=== PATIENT | male | born 1985 | race Caucasian/White ===

== ENCOUNTER 2017-07-18 15:34 | Emergency (ER) | payer OTHER ==
[2017-07-18 17:52] LABS: Urine Appearance Clear; Urine Blood Negative (Negative); Urine Color Yellow; Urine Ketones Negative (Negative); Urine Protein Negative (Negative); Urine Specific Gravity 1.024 (1.010-1.030); Urine Urobilinogen Negative (Negative)
[2017-07-18 18:02] LABS: ABS Basophils 0 10^3/ul (0-0.2); ABS Eosinophils 0.1 10^3/ul (0-0.6); ABS Lymphocytes 2.3 10^3/ul (1.0-4.8); ABS Monocytes 0.4 10^3/ul (0-0.8); ABS Neutrophils 3.2 10^3/ul (1.5-7.7); ABS Nucleated RBC 0 10^3/ul; Eosinophil % 2.2 % (0-6); Hematocrit 46 % (42-52); Hemoglobin 14.9 g/dl (14.0-18.0); Lymphocyte % 38.1 % (25-47); Mean Corpuscular HGB Conc 33 g/dl (31-36); Mean Corpuscular Hemoglobin 26 pg (27-31); Mean Corpuscular Volume 79 fL (80-94); Mean Platelet Volume 8.5 um3 (7.4-10.4); Nucleated Red Blood Cells % 0.1; Platelet Count 210 10^3/ul (150-450); Red Blood Count 5.74 10^6/ul (4.0-5.4); Red Cell Distribution Width 15 % (10.5-15); White Blood Count 6.1 10^3/ul (3.5-10.8)
[2017-07-18] MEDS ORDERED: ValACYclovir (*) 1 GM TAB PO ONE (18:22)
[2017-07-18 18:31] LABS: EGFR Non-African American 74.3 (>60)
[2017-07-18 18:50] VITALS: BP 117/79
--- NOTE | 2017-07-18 23:51 | ED ---
Antonino Naik Tecjoon, scribed for Kristen Park MD on 07/18/17 at 1713 . Skin Complaint - HPI Summary HPI Summary: This patient is a 32 year old male presenting to [facility] with a chief complaint of rash on upper right thigh since approx. 1 week ago. Patient states that he started feeling numbness, needle pricking and burning on right side of leg. The rash does not go onto the penis, but there is lots of groin pain. There are around 8 bumps all scattered around right thigh. The pain is described as stabbing. The pain is rated 8/10 in severity. Patient states that putting clothing on top of rash chafes and cause additional pain. Patient states that he tried "popping" several of the blisters of the rash in an effort to relieve the pain, states he got only clear fluid from the blisters. No fever. No red streaks. Symptoms alleviated by nothing. Patient additionally reports back pain , thigh pain. There are no sores in his mouth. Patient takes omeprazole for GERD as his only medication. - History of Current Complaint Chief Complaint: EDRashSkinAbscess Time Seen by Provider: 07/18/17 16:41 Stated Complaint: RT LEG RASH/PAIN Hx Obtained From: Patient Onset/Duration: Started Weeks Ago - 1, Still Present Timing: Constant Onset Severity: Moderate Current Severity: Severe Pain Intensity: 8 Pain Scale Used: 0-10 Numeric Skin Location: Leg - right thigh, but not definite dermatome pattern, also base of penis Character: Pain, Redness Aggravating Symptom(s): Touch Alleviating Symptom(s): Nothing, Treatment [employer]: - tried "popping" blisters with no relief Associated Signs & Symptoms: Negative - sores in mouth, fever, dysuria, discharge from penis Related History: Other: - hx of varicella zoster as child; is with monogamous partner, his x 9 yrs. - Allergy/Home Medications Allergies/Adverse Reactions: Allergies Allergy/AdvReac Type Severity Reaction Status Date / Time No Known Allergies Allergy Verified 07/18/17 16:35 Home Medications: Home Medications Cholecalciferol TAB* [Vitamin D TAB*] 1,000 unit PO DAILY 07/18/17 [History Confirmed 07/18/17] Omeprazole CAP* [Prilosec CAP* 20 MG] 20 mg PO DAILY 07/18/17 [History Confirmed 07/18/17] PMH/Surg Hx/FS Hx/Imm Hx Previously Healthy: Yes GI History: Reports: Hx Gastroesophageal Reflux Disease - Surgical History Surgery Procedure, Year, and Place: Inguinal Hernia Surgery Infectious Disease History: No Infectious Disease History: Denies: Traveled Outside the [place] in Last 30 Days - Family History Known Family History: Positive: Hypertension, Other - melanoma - Social History 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[facility], here to play with [employer] Lives: With Family Alcohol Use: Occasionally Hx Substance Use: No Substance Use Type: Reports: None Hx Tobacco Use: Yes Smoking Status (MU): Former Smoker Review of Systems Negative: Fever Cardiovascular: Negative Respiratory: Negative Gastrointestinal: Negative Genitourinary: Negative Positive: no symptoms reported Positive: Other - back pain, thigh pain Skin: Negative - sores in mouth Positive: Rash, Other - blisters on right thigh and base of penis Neurological: Negative Psychological: Normal All Other Systems Reviewed And Are Negative: Yes Physical Exam - Summary Physical Exam Summary: Appearance: well appearing, moderate pain distress, Well-nourished Skin: Clear vesicles in clusters, starting on right lateral hip to groin to base of penis, continuing to right medial aspect of leg, not in definite dermatomal pattern. Right inguinal lymphadenopathy, 3cm, tender, movable Head: Normal Head/Face inspection Eyes: Conjunctiva clear ENT: Normal inspection Neck: Supple, no nodes, no JVD. Respiratory: Lungs clear, Normal breath sounds, no respiratory distress Cardio: RRR, No murmur, pulses normal, brisk capillary refill Abdomen: soft, nontender, no masses Bowel sounds: present : circumcised male, testes descended bilat, no masses, nontender. No lesions on penis or scrotum. No penile discharge. Musculoskeletal: Strength Intact/ ROM intact. No calf tenderness. No edema. Psychological: Normal Neuro: Alert, muscle tone normal, no focal deficit Triage Information Reviewed: Yes Vital Signs On Initial Exam: Initial Vitals Temp Pulse Resp BP Pulse Ox 99.0 F 77 16 123/82 100 07/18/17 15:45 07/18/17 15:45 07/18/17 15:45 07/18/17 15:45 07/18/17 15:45 Vital Signs Reviewed: Yes Diagnostics - Vital Signs Vital Signs Temp Pulse Resp BP Pulse Ox 07/18/17 16:33 74 118/82 98 07/18/17 15:45 99.0 F 77 16 123/82 100 - Laboratory Result Diagrams: 07/18/17 17:55 07/18/17 17:55 Lab Statement: Any lab studies that have been ordered have been reviewed, and results considered in the medical decision making process. Course/Dx - Course Course Of Treatment: This patient is a 32 year old male presenting to [facility] with a chief complaint of rash on upper right thigh and base of penis since approx. 1 week ago. The rash does not go onto the penis, but there is lots of groin pain. There are more than 8 clusters of clear vesicles all scattered around right thigh and base of penis. There is palpable lymphadenopathy in right inguinal area that is tender, moveable, not red or hot. Pt has no hx MRSA. Lesions were attempted to be unroofed and cultured but no significant drainage obtained. Bloodwork Obtained with normal wbc count and differential. Urinalysis Obtained. Test results with no significant abnormalities, with several STD tests pending including tests for HSV and HZ. Patient will be discharged with a dx of possible Herpes zoster, although pattern of lesions on right thigh and base of penis, is not entirely dermatomal. Pt will be empirically treated with valacyclovir in case pt has HZ or HSV. 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 Patient has been given a dermatology referral and is advised to follow up in 2 days. Pt also states that he has been to a smoking tobacco packer hand in his hometown of [place] [facility] and he will seek dermatology opinion in [place] [facility] if no improvement. The patient is agreeable with this plan. - Differential Diagnoses - Skin Complaint Differential Diagnoses: Allergic Reaction, Cellulitis, Contact Dermatitis, Drug Rash, Other - HSV, HZ, STD - Diagnoses Provider Diagnoses: Dermatitis Discharge - Sign-Out/Discharge Documenting (check all that apply): Discharge/Admit/Transfer - Discharge Plan Condition: Stable Disposition: HOME Prescriptions: ValACYclovir (*) [Valtrex 1 GM(*)] 1 gm PO BID #20 tab Patient Education Materials: Shingles (ED) Referrals: Erin Argueta [Medical Doctor] - 2 Days Non Staff,Doctor [Primary Care Provider] - Additional Instructions: We have sent your prescription to [facility] at [address] [place] [address]. We have referred you to a smoking tobacco packer hand because we are not sure of the diagnosis. The blood work that returned so far is not remarkable and we gave you a copy of the results. There are multiple tests pending and we will contact you with the results if you need further treatment. If you have not heard from us and want results please contact our emergency department. Return to the ED for any new or worsening symptoms. - Billing Disposition and Condition Condition: STABLE Disposition: HOME The documentation as recorded by the Antonino schaefer Tecjoon accurately reflects the service I personally performed and the decisions made by me, Kristen Park MD.
[2017-07-21 11:52] LABS: Herpes Simplex Virus II IgG AB Negative (Negative)
--- NOTE | 2017-07-22 09:42 | ED ---
Progress - Progress Note Progress Note: Patient's rash culture confirms VZV. Patient was diagnosed with shingles and treated with valacyclovir. No further treatment is necessary at this time. Course/Dx - Course Course Of Treatment: This patient is a 32 year old male presenting to [facility] with a chief complaint of rash on upper right thigh and base of penis since approx. 1 week ago. The rash does not go onto the penis, but there is lots of groin pain. There are more than 8 clusters of clear vesicles all scattered around right thigh and base of penis. There is palpable lymphadenopathy in right inguinal area that is tender, moveable, not red or hot. Pt has no hx MRSA. Lesions were attempted to be unroofed and cultured but no significant drainage obtained. Bloodwork Obtained with normal wbc count and differential. Urinalysis Obtained. Test results with no significant abnormalities, with several STD tests pending including tests for HSV and HZ. Patient will be discharged with a dx of possible Herpes zoster, although pattern of lesions on right thigh and base of penis, is not entirely dermatomal. Pt will be empirically treated with valacyclovir in case pt has HZ or HSV. 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 Patient has been given a dermatology referral and is advised to follow up in 2 days. Pt also states that he has been to a bat person in his hometown of [facility] and he will seek dermatology opinion in [facility] if no improvement. The patient is agreeable with this plan. - Diagnoses Provider Diagnoses: Dermatitis Discharge - Sign-Out/Discharge Documenting (check all that apply): Post-Discharge Follow Up - Discharge Plan Condition: Stable Disposition: HOME Prescriptions: ValACYclovir (*) [Valtrex 1 GM(*)] 1 gm PO BID #20 tab Patient Education Materials: Shingles (ED) Referrals: Erin Argueta [Medical Doctor] - 2 Days Non Staff,Doctor [Primary Care Provider] - Additional Instructions: We have sent your prescription to [facility] at [facility] [address] [place], [place]. We have referred you to a bat person because we are not sure of the diagnosis. The blood work that returned so far is not remarkable and we gave you a copy of the results. There are multiple tests pending and we will contact you with the results if you need further treatment. If you have not heard from us and want results please contact our emergency department. Return to the ED for any new or worsening symptoms. - Billing Disposition and Condition Condition: STABLE Disposition: HOME
== END 2017-07-18 18:49 | disposition home or self-care (01) ==
LOC: ED 15:34
DX: B02.9 Zoster without complications (principal); Z87.891 Personal history of nicotine dependence
CPT/HCPCS: 36415; 80053; 81003; 83605; 85025; 86140; 86308; 86592; 86664; 86665; 86694; 86695; 86696; 86787; 87070; 87077; 87205; 87491; 87529; 87591; 87640; 87641; 87798; 99283; A9270-GY